=== PATIENT | male | born 1975 | race Hispanic/Latino ===

== ENCOUNTER 2024-01-12 22:43 | Emergency (ER) | payer OTHER ==
[~2024-01-12] VITALS: Ht 188 cm; Wt 131.5 kg
[~2024-01-12 22:43] MED LIST: COLCHICINE0.6 M1 PO; INDOMETHACIN50 MG PO; PREDNISONE50 MG PO
[2024-01-12 22:51] VITALS: PULSE 102; RESP 18; TEMP 98.7; O2SAT 98
[2024-01-12 23:36] LABS: INFLUENZA A AG NEGATIVE (NEGATIVE); INFLUENZA B AG NEGATIVE (NEGATIVE)
[2024-01-12 23:37] LABS: CORONAVIRUS COVID-19 AG NEGATIVE (NEGATIVE)
[2024-01-12] MEDS ORDERED: VENTOLIN HFA18 GM INH (23:41)
[2024-01-12] MEDS ORDERED: AZITHROMYCIN250 MG PO (23:41)
[2024-01-12] MEDS ORDERED: PREDNISONE20 MG PO (23:41)
[2024-01-13] MEDS ORDERED: PEPCID20 MG PO (00:03)
== END 2024-01-12 23:50 | disposition home or self-care (01) ==
LOC: ER 22:55
DX: R05.9 Cough, unspecified (principal); J06.9 Acute upper respiratory infection, unspecified; I10 Essential (primary) hypertension; J45.909 Unspecified asthma, uncomplicated; M10.9 Gout, unspecified; R53.81 Other malaise; Z11.52 Encounter for screening for COVID-19
CPT/HCPCS: 83518; 87070; 99283

== ENCOUNTER 2024-05-10 00:56 | Emergency (ER) | payer OTHER ==
[~2024-05-10] VITALS: Ht 188 cm; Wt 129.3 kg
[~2024-05-10 00:56] MED LIST changes: +AZITHROMYCIN250 MG PO; +PEPCID20 MG PO; +PREDNISONE20 MG PO; +VENTOLIN HFA18 GM INH
[2024-05-10 01:10] VITALS: TEMP 98.8
[2024-05-10 01:42] LABS: BASOPHILS # (AUTO) 0.1 (0.0-0.1); BASOPHILS % 0.8 % (0.0-1.0); EOSINOPHILS # (AUTO) 0.5 (0.0-0.4); EOSINOPHILS % 7.1 % (0.0-6.0); HEMATOCRIT 40.3 % (38.2-49.6); HEMOGLOBIN 13.8 g/dL (14.0-18.0); LYMPHOCYTES # (AUTO) 2.3 (1.0-3.2); LYMPHOCYTES % 30.6 % (18.0-39.1); MEAN CORPUSCULAR HEMOGLOBIN 28.7 pg (28-32); MEAN CORPUSCULAR HGB CONC 34.2 g/dL (31-35); MEAN CORPUSCULAR VOLUME 83.8 fL (81-99); MONOCYTES # (AUTO) 0.7 (0.2-0.8); MONOCYTES % 8.5 % (4.4-11.3); NEUTROPHILS % 52.7 % (38.7-80.0); PLATELET COUNT 220 x10e3/uL (140-360); RED BLOOD COUNT 4.81 x10e6/uL (4.3-5.7); RED CELL DISTRIBUTION WIDTH 13.5 % (11.7-14.4); WHITE BLOOD COUNT 7.64 x10e3/uL (4.8-10.8)
[2024-05-10 01:53] LABS: ANION GAP 17.6 mmol/L (8-16); CALCIUM 9.4 mg/dL (8.4-10.2); CREATININE, SERUM 1.06 mg/dL (0.72-1.25); POTASSIUM 3.6 mmol/L (3.5-5.1)
[2024-05-10] MEDS ORDERED: IOPAMIDOL 370 MG/ML 100 ML INFUS..BTL INJ ONE (02:13)
[2024-05-10 04:20] VITALS: PULSE 80; RESP 18; O2SAT 98
== END 2024-05-10 05:20 | disposition other institution (70) ==
LOC: ER 01:29
DX: R07.0 Pain in throat (principal); T18.198A Other foreign object in esophagus causing other injury, initial encounter; I10 Essential (primary) hypertension; M10.9 Gout, unspecified
CPT/HCPCS: 36415; 70491; 80048; 83518; 85025; 87070; 93005; 99284; Q9967